=== PATIENT | female | born 1985 | race Caucasian/White ===

== ENCOUNTER 2023-03-01 10:28 | Observation (INO) ==
[2023-03-01] MEDS ORDERED: Naloxone 0.4 mg VIAL 0.4 mg/ml 1 ml VIAL IV PUSH PRN ×2 (10:41→14:18)
[2023-03-01] MEDS ORDERED: NS 0.9% 1,000 ML IV SCH (11:00)
[2023-03-01] MEDS ORDERED: NS 0.9% 1000 ml BAG 500 ML IV ONE (11:00)
[2023-03-01] MEDS ORDERED: Clindamycin 900 MG/D5W BAG IVPB ONE (11:00)
[2023-03-01] MEDS ORDERED: Scopolamine 1 mg/72hr PATCH ONE (11:43)
[2023-03-01] MEDS ORDERED: oxyCODONE SR 10 mg TAB ONE (11:43)
[2023-03-01] MEDS ORDERED: Ondansetron 4 mg VIAL 2 MG/ML 2 ml VIAL ONE (11:43)
[2023-03-01 11:46] LABS: ABS Basophils 0.1 10^3/uL (0.0-0.1); ABS Eosinophils 0.2 10^3/uL (0.0-0.5); ABS Lymphocytes 2.4 10^3/uL (1.0-4.8); ABS Monocytes 0.5 10^3/uL (0.0-0.9); ABS Neutrophils 5.6 10^3/uL (1.5-7.6); ABS Nucleated RBC 0.01 10^3/ul; Eosinophil % 2.6 %; Hematocrit 35.3 % (35-45); Hemoglobin 11.6 g/dL (11.5-14.3); Lymphocyte % 27.6 %; Mean Corpuscular Hgb Conc 32.8 g/dL (31-36); Mean Corpuscular Volume 76.2 fL (80-97); Mean Platelet Volume 8.3 fL (7.5-11.2); Nucleated Red Blood Cells % 0.1 /100 WBC (0.0-0.4); Platelet Count 402 10^3/uL (150-450); Red Blood Count 4.64 10^6/uL (3.63-4.92); Red Cell Distribution Width 15.9 % (12-17); White Blood Count 8.9 10^3/uL (3.8-11.8)
[2023-03-01 11:47] LABS: INR 1.07 (0.88-1.18)
[2023-03-01] MEDS ORDERED: HYDROmorphone PCA 20 MG/20 ML PCA.SYRING PCA SCH (12:00)
[2023-03-01] MEDS ORDERED: Iohexol 350 (CONTRAST) 100 ML PAK IV ONE ×2 (12:07→12:43)
[2023-03-01] MEDS ORDERED: Heparin 2 UNITS/ML IVPREMIX 3,000 UNIT/1,500 ML BAG IV ONE (12:07)
[2023-03-01] MEDS ORDERED: Lidocaine 1% VIAL 10 MG/ML VIAL 30 ML ONE (12:07)
[2023-03-01 12:12] LABS: HCG Pregnancy < 0.60 mIU/mL
[2023-03-01] MEDS ORDERED: Dexamethasone IV 4 MG/ML VIAL 1 ml VIAL IV SLOW PU ONE (12:15)
[2023-03-01 12:19] LABS: Anion Gap 12 mmol/L (2-16); Blood Urea Nitrogen 11 mg/dL (6-24); CO2 Carbon Dioxide 24 mmol/L (22-32); Calcium 9.1 mg/dL (8.6-10.3); Chloride 105 mmol/L (101-111); Creatinine, Serum 0.81 mg/dL (0.51-0.95); Glucose 93 mg/dL (70-100); Potassium 4.4 mmol/L (3.5-5.0); Sodium 141 mmol/L (135-145); eGFR CKD-EPI 95.8 (>60)
[2023-03-01] MEDS ORDERED: Midazolam 5 mg/5 ml VIAL 1 mg/ml 5 ml VIAL (5 mg) ONE (12:19)
[2023-03-01] MEDS ORDERED: fentaNYL 100 mcg/2 ml 50 MCG/ML VIAL ONE ×2 (12:20→12:53)
[2023-03-01] MEDS ORDERED: nitroGLYCERIN DRIP 25,000 MCG/250 ML BTL ONE (12:20)
[2023-03-01] MEDS ORDERED: HYDROmorphone 0.5 MG/0.5 ML SYRINGE ONE ×2 (13:25→13:46)
[2023-03-01] MEDS: NS 0.9% 1,000 ML IV SCH ×2 (13:55→18:17)
[2023-03-01] MEDS ORDERED: Flumazenil 0.5 mg/5 ml 0.1 MG/ML 5 ml VIAL IV PRN (14:18)
[2023-03-01] MEDS ORDERED: fentaNYL 100 mcg/2 ml 50 MCG/ML VIAL IV SLOW PU ONE (14:18)
[2023-03-01] MEDS ORDERED: Midazolam 10 mg/10 ml VIAL 1 mg/ml 10 ml VIAL (10 mg) IV SLOW PU ONE (14:18)
[2023-03-01] MEDS ORDERED: Albuterol HFA INHALER 8 gm MDI INH PRN (14:58)
[2023-03-01] MEDS: Ondansetron 4 mg VIAL 2 MG/ML 2 ml VIAL IV SCH (18:58)
[2023-03-01] MEDS: Mometasone/Formoter 100/5 MDI INH SCH (19:22)
[2023-03-02] MEDS: Ondansetron 4 mg VIAL 2 MG/ML 2 ml VIAL IV SCH ×2 (02:09→06:19)
[2023-03-02 07:01] LABS: Calcium 8.8 mg/dL (8.6-10.3); Creatinine, Serum 0.66 mg/dL (0.51-0.95); Potassium 4.4 mmol/L (3.5-5.0); eGFR CKD-EPI 115.8 (>60)
[2023-03-02] MEDS: Mometasone/Formoter 100/5 MDI INH SCH (07:24)
[2023-03-02 08:10] LABS: Hematocrit 32.8 % (35-45); Hemoglobin 10.9 g/dL (11.5-14.3); Mean Corpuscular Hemoglobin 24.8 pg (27-33); Mean Corpuscular Hgb Conc 33.3 g/dL (31-36); Mean Corpuscular Volume 74.3 fL (80-97); Mean Platelet Volume 8.6 fL (7.5-11.2); Platelet Count 450 10^3/uL (150-450); Red Blood Count 4.41 10^6/uL (3.63-4.92); Red Cell Distribution Width 15.7 % (12-17); White Blood Count 13.8 10^3/uL (3.8-11.8)
[2023-03-02] MEDS ORDERED: HYDROcodone/ACETAMIN 5/325 mg TAB PO PRN (08:36)
[2023-03-02 09:11] LABS: ABS Lymphocytes 1.2 10^3/uL (1.0-4.8); ABS Monocytes 0.6 10^3/uL (0.0-0.9); ABS Nucleated RBC 0.02 10^3/ul; Lymphocyte % 8.7 %; Nucleated Red Blood Cells % 0.1 /100 WBC (0.0-0.4)
[2023-03-02] MEDS ORDERED: Ketorolac 10 mg TAB (NF) PO SCH (12:00)
== END 2023-03-02 14:55 | disposition home or self-care (01) ==
LOC: SSU 10:28 → CHICATH 10:28
PROVIDERS: ADMIT Radiology Diagnostic Radiology; ATTEND Internal Medicine
PROC: ANG.UFE (2023-03-01 12:10)